=== PATIENT | male | born 1960 | race Caucasian/White ===

== ENCOUNTER 2019-06-23 00:57 | Emergency (ER) | payer OTHER ==
[~2019-06-23] VITALS: Ht 185.4 cm; Wt 95.3 kg
[2019-06-23] MEDS ORDERED: COZAAR 25 MG TA25 M1 PO (01:08)
[2019-06-23] MEDS ORDERED: ASPIRIN325 PO (01:09)
[2019-06-23] MEDS ORDERED: AMLODIPINE BESY10 MG PO (01:09)
[2019-06-23 01:26] LABS: ABSOLUTE BASOPHILS 0.1 thou/uL (0.0-0.2); ABSOLUTE EOSINOPHILS 0.1 thou/uL (0.0-0.7); ABSOLUTE LYMPHOCYTES 0.9 thou/uL (0.8-5.3); ABSOLUTE MONOCYTES 0.8 thou/uL (0.0-1.2); ABSOLUTE NEUTROPHILS 8.8 thou/uL (1.6-8.1); BASOPHILS 0.6 %; HEMOGLOBIN 12.7 gm/dL (14.0-18.0); MCHC 33.5 g/dL (28.0-37.0); MCV 95.4 fL (80.0-100.0); MONOCYTES 7.3 %; MPV 7.9 fl. (7.2-11.1); NUCLEATED RBCS 0 /100WBC; PLATELET COUNT* 325 thou/uL (150-400); POLYS 83.1 %; RBC 3.98 mil/uL (4.50-6.00); RDW-CV 13.4 % (10.5-14.5); WBC 10.6 thou/uL (4.0-11.0)
[2019-06-23 01:36] LABS: ANION GAP 10 mmol/L (7-16); BUN 15 mg/dL (7-18); CALCIUM 8.6 mg/dL (8.5-10.1); CHLORIDE 105 mmol/L (98-107); CO2 24 mmol/L (21-32); CREATININE 0.9 mg/dL (0.6-1.3); GLUCOSE 150 mg/dL (70-99); POTASSIUM 4.1 mmol/L (3.5-5.1); SODIUM 139 mmol/L (136-145)
[2019-06-23 01:53] LABS: ALBUMIN 3.1 g/dL (3.4-5.0); ALKALINE PHOSPHATASE 71 U/L (46-116); CK-MB MASS 0.9 ng/mL (<0.5-3.6); LIPASE 116 U/L (73-393); MAGNESIUM 1.8 mg/dL (1.8-2.4); NT-PRO BRAIN NAT PEPTIDE 98 pg/mL (<300); SGOT 27 U/L (15-37); SGPT 52 U/L (30-65); TOTAL PROTEIN 6.7 g/dL (6.4-8.2); TROPONIN-I LEVEL <0.06 ng/mL (<0.06)
[2019-06-23 02:04] LABS: APTT 24.3 Seconds (25.0-31.3); PROTIME 9.8 Seconds (9.20-11.50)
[2019-06-23 04:15] VITALS: BP 157/96
--- NOTE | 2019-06-23 11:52 | EKG ---
[place] [address] ELECTROCARDIOGRAM REPORT Name: MARK WOLF Room: [facility]#: [id number] Admission: 06/23/19 Attend Phys: Discharge: 06/23/19 Date of : 62 Report #: [id number] THIS REPORT FOR: //name// [facility] ED Test Date: 2019-06-23 Test Time: 01:05:55 Pat Name: MARK WOLF Department: Room: Gender: M Progressive Care Nurse: MIRZA : 1960 Requested By: Fredo Iverson Order Number: [id number] MD: Tan Pederson Measurements Intervals [place] Rate: 58 P: 36 [place]: 195 QRS: 3 QRSD: 95 T: 10 QT: 432 QTc: 425 Interpretive Statements Sinus rhythm Left atrial enlargement Nonspecific repol abnormality, inferior leads Borderline ST elevation, lateral leads Baseline wander in lead(s) I,III,aVL,aVF No previous ECG available for comparison Electronically Signed On 06-23-2019 11:51:58 CDT by Tan Pederson [email or web address] <ELECTRONICALLY SIGNED> By: Tan Pederson MD, [facility] 06/23/19 [id number] Tan Pederson MD, [facility] /EPI
== END 2019-06-23 04:15 | disposition home or self-care (01) ==
LOC: M.ERS 00:57
PROVIDERS: Family Medicine
DX: R07.89 Other chest pain (principal); Z96.649 Presence of unspecified artificial hip joint